=== PATIENT | male | born 1945 | race Caucasian/White ===

== ENCOUNTER 2021-03-07 12:13 | Emergency (ER) | payer MEDICARE, BC ==
--- NOTE | 2021-03-07 13:28 | CR ---
Bilateral knees: Standing AP view of both knees was obtained as well as lateral and sunrise patellar views. Severe medial joint space narrowing is noted bilaterally. Lateral joint spaces are preserved. Small bony density is noted on the right superior patella which appears old. Bony density is noted within the lateral joint of the right knee most likely representing loose body. Mild bilateral joint space narrowing is seen within the patellofemoral joints with osteophytes. Large calcification is seen superior to the left patella within a joint effusion measuring 2.6 cm. Joint effusion is also noted on the right side. Vascular calcification is noted within both knees. Impression: 1. Severe degenerative change as noted above. 2. Bilateral joint effusions are seen. 3. 2.6 cm calcification is noted within the left joint effusion. Other findings as noted above. 4. Nothing acute is seen. Diagnostic code #2
[2021-03-07] MEDS ORDERED: HYDROmorphone 1 MG/ML Syringe IM ONE (13:41)
--- NOTE | 2021-03-07 14:36 | EDM.PDOC ---
ED HPI GENERAL MEDICAL PROBLEM - General Chief Complaint: Lower Extremity Injury/Pain Stated Complaint: [facility] Time Seen by Provider: 03/07/21 13:02 Source of Information: Reports: Patient, RN Notes Reviewed History Limitations: Reports: No Limitations ( ) - History of Present Illness INITIAL COMMENTS - FREE TEXT/NARRATIVE: Patient is a 75-year-old male presenting to the emergency department with complaints of bilateral knee pain. Patient reports this has been going on for quite some time, however has worsened since of last week. 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 He has been evaluated by an orthopedist in [place] with the plan of having knee replacement, however it has been repeatedly canceled due to Covid. He is scheduled to see orthopedist, Dr. Horta on Sunday and this would be his first visit. He denies any recent injuries. He has been unable to walk on his knees since . Reports that he sits on his walker and scoots. He has been taking hydrocodone with Tylenol for pain but states this is not really helping. Bilateral Knee Pain Score (Numeric/FACES): 8 - Related Data Allergies Allergy/AdvReac Type Severity Reaction Status Date / Time No Known Allergies Allergy Verified 03/07/21 12:25 Home Meds: Home Meds Acetaminophen/oxyCODONE [Percocet 325-5 MG] 1 each PO Q4H PRN #15 tab 03/07/21 [Rx] predniSONE [Prednisone] 20 mg PO ASDIRECTED #15 tablet 03/07/21 [Rx] Past Medical History Cardiovascular History: Reports: Afib, CAD, Heart Failure, High Cholesterol Gastrointestinal History: Reports: GERD, GI Bleed, Other (See Below) Other Gastrointestinal History: "Bleeding Ulcers" Musculoskeletal History: Reports: Other (See Below) Other Musculoskeletal History: Chronic Knee Pain Endocrine/Metabolic History: Reports: Diabetes, Type II, Hypokalemia, Obesity/BMI 30+ Hematologic History: Reports: Anticoagulation Therapy - Infectious Disease History Infectious Disease History: Reports: Novel Coronavirus - Past Surgical History HEENT Surgical History: Reports: Cataract Surgery Cardiovascular Surgical History: Reports: Carotid Stents, Valve Replacement Neurological Surgical History: Reports: Other (See Below) Other Neurological Surgeries/Procedures: Back Surgeries Social & Family History - Tobacco Use Tobacco Use Status *Q: Never Tobacco User - Caffeine Use Caffeine Use: Reports: Coffee - Recreational Drug Use Recreational Drug Use: No Review of Systems - Review of Systems Review Of Systems: Comprehensive ROS is negative, except as noted in HPI. ED EXAM, GENERAL - Physical Exam Exam: See Below Exam Limited By: No Limitations General Appearance: Alert, WD/WN, No Apparent Distress Respiratory/Chest: No Respiratory Distress, Lungs Clear, Normal Breath Sounds, No Accessory Muscle Use, Chest Non-Tender Cardiovascular: Normal Peripheral Pulses, Regular Rate, Rhythm, No Edema, No Gallop, No JVD, No Murmur, No Rub Extremities: Other (Swelling to bilateral knees.) Neurological: Alert, Oriented, CN II-XII Intact, Normal Cognition, Normal Reflexes, No Motor/Sensory Deficits Psychiatric: Normal Affect, Normal Mood Skin Exam: Warm, Dry, Intact, Normal Color, No Rash Course - Vital Signs Last Recorded V/S: Last Vital Signs Temp 96.7 F L 03/07/21 12:22 Pulse 80 03/07/21 12:22 Resp 16 03/07/21 12:22 BP 105/76 03/07/21 12:22 Pulse Ox 100 03/07/21 12:22 - Orders/Labs/Meds Meds: Medications Discontinued Medications Generic Name Dose Route Start Last Admin Trade Name Sundarq PRN Reason Stop Dose Admin Hydromorphone HCl 1 mg 03/07/21 13:41 03/07/21 13:54 Hydromorphone 1 Mg/Ml Syringe IM 03/07/21 13:42 1 mg ONETIME ONE Administration Prednisone 40 mg 03/07/21 16:01 03/07/21 16:07 Prednisone 20 Mg Tab PO 03/07/21 16:02 40 mg ONETIME ONE Administration - Re-Assessments/Exams Free Text/Narrative Re-Assessment/Exam: Patient is a 75-year-old male presenting to the emergency part with complaints of bilateral knee pain the right being worse than the left. He has chronic degenerative joint disease and has been scheduled to have knee replacements, however they have been canceled due to Covid. He is scheduled to see Dr. Horta on Sunday and this would be his first visit with him. He has been taking hydrocodone with Tylenol with little relief. Last dose was this morning. Of ordered Dilaudid 1 mg IM and bilateral knee x-rays. 03/07/21 1520 xrays of the bilateral knees show severe degenerative changes as well as bilateral joint effusions. There is a 2.6 cm calcification within the left joint effusion. Nothing acute is seen. His pain is improved significantly after the Dilaudid. He was able to get up and walk across the room with the assistance of a walker. I will discharge him home with prescription for Percocet for pain as well as prednisone. Recommend that he follow-up with Dr. Horta as scheduled on Sunday. Discussed return precautions. Discharge instructions as documented. Departure - Departure Time of Disposition: 15:25 Disposition: Home, Self-Care 01 Condition: Good Clinical Impression: Knee pain, chronic Qualifiers: Laterality: bilateral Qualified Code(s): M25.561 - Pain in right knee; M25.562 - Pain in left knee; G89.29 - Other chronic pain - Discharge Information *PRESCRIPTION DRUG MONITORING PROGRAM REVIEWED*: Yes *COPY OF PRESCRIPTION DRUG MONITORING REPORT IN PATIENT MONSTER: No Prescriptions: Acetaminophen/oxyCODONE [Percocet 325-5 MG] 1 each PO Q4H PRN #15 tab PRN Reason: Pain predniSONE [Prednisone] 20 mg PO ASDIRECTED #15 tablet Instructions: Chronic Knee Pain, Adult, [id number] Referrals: Radha Staley PA-C [Primary Care Provider] - Forms: ED Department Discharge Additional Instructions: Recommend routine Tylenol. For pain not relieved by this, a prescription for oxycodine/tylenol has been provided. Take this only as prescribed. Do not work or drive for 12 hours after taking this as it can be sedating. Ensure you are not taking in more than 4000 mg of Tylenol from all sources in a 24-hour period. Do not take your hydrocodone with Tylenol while taking the oxycodone/Tylenol. Take the prednisone as prescribed. Keep your appointment Dr. Horta on Sunday as scheduled. Return to ER for any new or worsening symptoms. Sepsis Event Note (ED) - Evaluation Sepsis Screening Result: No Definite Risk
[2021-03-07] MEDS ORDERED: predniSONE 20 MG Tab PO ONE (16:01)
== END 2021-03-07 16:05 | disposition home or self-care (01) ==
LOC: JD.ED 12:13
DX: G89.29 Other chronic pain (principal); M25.561 Pain in right knee; M25.562 Pain in left knee; I48.91 Unspecified atrial fibrillation; I25.10 Atherosclerotic heart disease of native coronary artery without angina pectoris; I50.9 Heart failure, unspecified; E78.00 Pure hypercholesterolemia, unspecified; E11.9 Type 2 diabetes mellitus without complications; E66.9 Obesity, unspecified; Z68.30 Body mass index [BMI] 30.0-30.9, adult
CPT/HCPCS: 73562; 96372; 99283; J1170; J7512

== ENCOUNTER 2021-04-13 18:00 | Emergency (ER) | payer MEDICARE, BC ==
[2021-04-13] MEDS ORDERED: Sodium Chloride 0.9% 10 ML Syringe FLUSH PRN (18:26)
--- NOTE | 2021-04-13 19:00 | EDM.PDOC ---
ED HPI GENERAL MEDICAL PROBLEM - General Chief Complaint: Cardiovascular Problem Stated Complaint: BLOOD PRESSURE LOW Time Seen by Provider: 04/13/21 18:23 Source of Information: Reports: Patient, RN Notes Reviewed History Limitations: Reports: No Limitations - History of Present Illness INITIAL COMMENTS - FREE TEXT/NARRATIVE: Patient is a 75-year-old male presenting to the emergency department from the [facility] with concerns of low blood pressure and dizziness. Symptoms began this morning upon waking. Patient states that he felt generalized weakness and dizziness which was worse upon standing. He went to physical therapy and they was found to have a low blood pressure. He was then seen by his primary care provider, SWATHI Breaux and was found to have initial blood pressure of 87/57 lying and 66/42 standing. He received 500 mils of saline and did have some improvement to 106/69 but still 74/43 standing. Patient states he felt better after the fluids. Patient has a history of left knee replacement 1 month ago. He is also had GI bleed for which she was hospitalized in [place]. He was off of his blood thinners for the knee surgery as well as GI bleed, however he did resume blood thinners 2 weeks ago. He denies any watery or black stools and has had no vomiting. Denies any chest pain or shortness of breath. Symptoms have resolved at this time. Of note, he did take an oxycodone this morning which she has not done for approximately 1 week. He has a history of MD with stenting. states his only symptom at that time was breaking out in a cold sweat. - Related Data Allergies Allergy/AdvReac Type Severity Reaction Status Date / Time No Known Allergies Allergy Verified 04/13/21 18:28 Home Meds: Home Meds ALPRAZolam [Xanax] 0.5 mg PO Q8H PRN 04/13/21 [History] Acetaminophen [Tylenol 8 Hour] 1,300 mg PO Q8H PRN 04/13/21 [History] Apixaban [Eliquis] 5 mg PO BID 04/13/21 [History] Dulaglutide [Trulicity] 0.75 mg SQ ASDIRECTED 04/13/21 [History] Ferrous Fumarate/Vitamin C [Vitron-C] 65 - 125 mg PO BID 04/13/21 [History] Furosemide 20 mg PO BID 04/13/21 [History] Nitroglycerin [Nitrostat] 0.4 mg SL ASDIRECTED PRN 04/13/21 [History] Pantoprazole [ProTONIX] 40 mg PO DAILY 04/13/21 [History] Potassium Chloride [Klor-Con 10] 10 meq PO BID 04/13/21 [History] Rosuvastatin [Crestor] 10 mg PO DAILY 04/13/21 [History] Sacubitril/Valsartan [Entresto 24 mg-26 mg Tablet] 24 - 26 mg PO DAILY 04/13/21 [History] Sertraline [Zoloft] 50 mg PO DAILY 04/13/21 [History] carvediloL [Carvedilol] 6.25 mg PO DAILY 04/13/21 [History] carvediloL [Carvedilol] 12.5 mg PO BEDTIME 04/13/21 [History] glipiZIDE [Glucotrol XL] 2.5 mg PO DAILY 04/13/21 [History] Past Medical History Cardiovascular History: Reports: Afib, CAD, Heart Failure, High Cholesterol Gastrointestinal History: Reports: GERD, GI Bleed, Other (See Below) Other Gastrointestinal History: "Bleeding Ulcers" Musculoskeletal History: Reports: Other (See Below) Other Musculoskeletal History: Chronic Knee Pain Endocrine/Metabolic History: Reports: Diabetes, Type II, Hypokalemia, Obesity/BMI 30+ Hematologic History: Reports: Anticoagulation Therapy - Infectious Disease History Infectious Disease History: Reports: Novel Coronavirus - Past Surgical History HEENT Surgical History: Reports: Cataract Surgery Cardiovascular Surgical History: Reports: Carotid Stents, Valve Replacement Neurological Surgical History: Reports: Other (See Below) Other Neurological Surgeries/Procedures: Back Surgeries Social & Family History - Caffeine Use Caffeine Use: Reports: Coffee ED ROS GENERAL - Review of Systems Review Of Systems: See Below Constitutional: Reports: No Symptoms. Denies: Fever, Chills HEENT: Reports: No Symptoms Respiratory: Reports: No Symptoms. Denies: Shortness of Breath, Cough Cardiovascular: Reports: Blood Pressure Problem, Lightheadedness. Denies: Chest Pain, Dyspnea on Exertion, Palpitations, Syncope Endocrine: Reports: No Symptoms GI/Abdominal: Reports: No Symptoms : Reports: No Symptoms Musculoskeletal: Reports: No Symptoms Skin: Reports: No Symptoms Neurological: Reports: Dizziness Psychiatric: Reports: No Symptoms Hematologic/Lymphatic: Reports: No Symptoms Immunologic: Reports: No Symptoms ED EXAM, GENERAL - Physical Exam Exam: See Below Exam Limited By: No Limitations General Appearance: Alert, WD/WN, No Apparent Distress Eye Exam: Bilateral Eye: PERRL Respiratory/Chest: No Respiratory Distress, Lungs Clear, Normal Breath Sounds, No Accessory Muscle Use, Chest Non-Tender Cardiovascular: Normal Peripheral Pulses, Regular Rate, Rhythm, No Edema, No Gallop, No JVD, No Murmur, No Rub GI/Abdominal: Normal Bowel Sounds, Soft, Non-Tender, No Organomegaly, No Distention, No Abnormal Bruit, No Mass Extremities: Other (Well approximated, mostly healed incision to left knee. No redness, warmth, or drainage. Small amount of edema. 2+ pitting edema to left ankle and foot.) Neurological: Alert, Oriented, CN II-XII Intact, Normal Cognition, Normal Gait, Normal Reflexes, No Motor/Sensory Deficits Psychiatric: Normal Affect, Normal Mood Skin Exam: Warm, Dry, Intact, Normal Color, No Rash #1 Interpretation EKG Date: 04/13/21 Time: 18:49 Rhythm: NSR Rate (Beats/Min): 86 P-Wave: Present QRS: Normal ST-T: Normal QT: Normal EKG Interpretation Comments: frequent PVCs Course - Vital Signs Last Recorded V/S: Last Vital Signs Temp 97.7 F 04/13/21 18:25 Pulse 103 H 04/13/21 18:25 Resp 20 04/13/21 18:25 BP 112/63 04/13/21 18:25 Pulse Ox 100 04/13/21 18:25 Orthostatic Blood Pressure [ 89/58 Standing] Orthostatic Blood Pressure [ 94/65 Sitting] Orthostatic Blood Pressure [ 103/68 Supine] - Orders/Labs/Meds Orders: Active Orders 24 hr Category Date Time Status Orthostatic Vital Signs [RC] ASDIRECTED Care 04/13/21 18:27 Active Peripheral IV Care [RC] . DIRECTED Care 04/13/21 18:26 Active PE Chest [Ang Chest] [CT] Stat Exams 04/13/21 19:18 Taken Sodium Chloride 0.9% [Normal Saline] 1,000 ml Med 04/13/21 19:49 Active IV NOW Sodium Chloride 0.9% [Saline Flush] Med 04/13/21 18:26 Active 10 ml FLUSH ASDIRECTED PRN Peripheral IV Insertion Adult [OM.PC] Stat Oth 04/13/21 18:25 Ordered Medication Orders Sodium Chloride (Normal Saline) 1,000 mls @ 150 mls/hr IV NOW STA Stop: 04/14/21 02:28 Last Admin: 04/13/21 20:08 Dose: 150 mls/hr Documented by: JANETTER Sodium Chloride (Sodium Chloride 0.9% 10 Ml Syringe) 10 ml FLUSH ASDIRECTED PRN PRN Reason: Keep Vein Open Last Admin: 04/13/21 19:42 Dose: 10 ml Documented by: MIKE Labs: Laboratory Tests 04/13/21 04/13/21 04/13/21 Range/Units 18:20 18:20 18:20 WBC 12.12 H (4.23-9.07) K/mm3 RBC 4.28 L (4.63-6.08) M/mm3 Hgb 11.1 L (13.7-17.5) gm/dl Hct 36.7 L (40.1-51.0) % MCV 85.7 (79.0-92.2) fl MCH 25.9 (25.7-32.2) pg MCHC 30.2 L (32.2-35.5) g/dl RDW Std Deviation 56.1 H (35.1-43.9) fL Plt Count 459 H (163-337) K/mm3 MPV 9.1 L (9.4-12.3) fl Neut % (Auto) 65.8 (34.0-67.9) % Lymph % (Auto) 24.7 (21.8-53.1) % Upton % (Auto) 7.9 (5.3-12.2) % Eos % (Auto) 0.7 L (0.8-7.0) Baso % (Auto) 0.2 (0.1-1.2) % Neut # (Auto) 7.98 H (1.78-5.38) K/mm3 Lymph # (Auto) 2.99 (1.32-3.57) K/mm3 Upton # (Auto) 0.96 H (0.30-0.82) K/mm3 Eos # (Auto) 0.09 (0.04-0.54) K/mm3 Baso # (Auto) 0.02 (0.01-0.08) K/mm3 D-Dimer, Quantitative (0.19-0.50) mg/L Sodium 139 (136-145) mEq/L Potassium 4.1 (3.5-5.1) mEq/L Chloride 102 (98-107) mEq/L Carbon Dioxide 27 (21-32) mEq/L Anion Gap 14.1 (5-15) BUN 19 H (7-18) mg/dL Creatinine 1.3 (0.7-1.3) mg/dL Est Cr Clr Drug Dosing 53.78 mL/min Estimated GFR (MDRD) 54 (>60) mL/min BUN/Creatinine Ratio 14.6 (14-18) Glucose 153 H (70-99) mg/dL Calcium 8.8 (8.5-10.1) mg/dL Magnesium 2.1 (1.8-2.4) mg/dL Total Bilirubin 0.5 (0.2-1.0) mg/dL AST 31 (15-37) U/L ALT 18 (16-63) U/L Alkaline Phosphatase 293 H (46-116) U/L Troponin I < 0.017 (0.00-0.056) ng/mL C-Reactive Protein 3.8 H* (<1.0) mg/dL NT-Pro-B Natriuret Pep 2120 H (0-450) pg/mL Total Protein 7.3 (6.4-8.2) g/dl Albumin 2.3 L (3.4-5.0) g/dl Globulin 5.0 gm/dL Albumin/Globulin Ratio 0.5 L (1-2) 04/13/21 Range/Units 18:20 WBC (4.23-9.07) K/mm3 RBC (4.63-6.08) M/mm3 Hgb (13.7-17.5) gm/dl Hct (40.1-51.0) % MCV (79.0-92.2) fl MCH (25.7-32.2) pg MCHC (32.2-35.5) g/dl RDW Std Deviation (35.1-43.9) fL Plt Count (163-337) K/mm3 MPV (9.4-12.3) fl Neut % (Auto) (34.0-67.9) % Lymph % (Auto) (21.8-53.1) % Upton % (Auto) (5.3-12.2) % Eos % (Auto) (0.8-7.0) Baso % (Auto) (0.1-1.2) % Neut # (Auto) (1.78-5.38) K/mm3 Lymph # (Auto) (1.32-3.57) K/mm3 Upton # (Auto) (0.30-0.82) K/mm3 Eos # (Auto) (0.04-0.54) K/mm3 Baso # (Auto) (0.01-0.08) K/mm3 D-Dimer, Quantitative 1.91 H (0.19-0.50) mg/L Sodium (136-145) mEq/L Potassium (3.5-5.1) mEq/L Chloride (98-107) mEq/L Carbon Dioxide (21-32) mEq/L Anion Gap (5-15) BUN (7-18) mg/dL Creatinine (0.7-1.3) mg/dL Est Cr Clr Drug Dosing mL/min Estimated GFR (MDRD) (>60) mL/min BUN/Creatinine Ratio (14-18) Glucose (70-99) mg/dL Calcium (8.5-10.1) mg/dL Magnesium (1.8-2.4) mg/dL Total Bilirubin (0.2-1.0) mg/dL AST (15-37) U/L ALT (16-63) U/L Alkaline Phosphatase (46-116) U/L Troponin I (0.00-0.056) ng/mL C-Reactive Protein (<1.0) mg/dL NT-Pro-B Natriuret Pep (0-450) pg/mL Total Protein (6.4-8.2) g/dl Albumin (3.4-5.0) g/dl Globulin gm/dL Albumin/Globulin Ratio (1-2) Meds: Medications Generic Name Dose Route Start Last Admin Trade Name Freq PRN Reason Stop Dose Admin Sodium Chloride 1,000 mls @ 150 mls/hr 04/13/21 19:49 04/13/21 20:08 Normal Saline IV 12/02/21 02:28 150 mls/hr NOW STA Administration Sodium Chloride 10 ml 04/13/21 18:26 04/13/21 19:42 Sodium Chloride 0.9% 10 Ml Syringe FLUSH 10 ml ASDIRECTED PRN Administration Keep Vein Open - Re-Assessments/Exams Free Text/Narrative Re-Assessment/Exam: Patient is a 75-year-old male presenting to the emergency department for evaluation of low pressures and dizziness earlier today. He was hypotensive in the clinic and received 500 mils of saline. Unfortunately do not have the a bility to do blood work. He has a history of GI bleed and has recently been put back on his Eliquis, however he has had no bloody or black stools or vomiting of any sort. States he feels well at this time. Dizziness resolved after the IV fluids. On arrival to ER, he is normotensive at 112/63 which patient states is a normal blood pressure for him. He denies any chest pain or shortness of breath. I have ordered blood work, chest x-ray, EKG, orthostatic blood pressures. 04/13/21 1830 Hematology significant for WBC minimally elevated at 12.12, hemoglobin slightly low 11.1, D-dimer elevated 1.91, CRP 3.8, proBNP 2120. Troponin is undetectably low. Patient is not orthostatic. Elevation in D-dimer is likely related to his recent knee surgery, however given his history of A. fib and that he was off his Eliquis for his surgeries, we will complete a CT angiogram of the chest to ensure he does not have a PE. He has been back on his Eliquis for approximately 2 weeks. Patient reports he has had IV contrast in the past and tolerated it well. 04/13/21 21:06 CT angiogram of the chest shows no acute definitive changes. There is no evidence of pulmonary embolism. Patient has maintained normal blood pressures and is feeling well. Patient discussed that primary care provider recommended that he decrease his Lasix from 20 mg twice a day to to 20 mg once a day. I would agree with this change. Recommend follow-up with his primary care provider at her next available visit. Discussed return precautions. Discharge instructions as documented. Departure - Departure Time of Disposition: 21:07 Disposition: Home, Self-Care 01 Condition: Good Clinical Impression: Hypotension Qualifiers: Hypotension type: unspecified hypotension type Qualified Code(s): I95.9 - Hypotension, unspecified Instructions: Hypotension, [id number] Referrals: Radha Staley PA-C [Primary Care Provider] - Forms: ED Department Discharge Additional Instructions: Reduce Lasix to 20 mg once daily. Ensure you are taking in enough fluids throughout the day. Follow-up with primary care provider at next available visit. Return to ER for any new or worsening symptoms. Sepsis Event Note (ED) - Focused Exam Vital Signs: Vital Signs Temp Pulse Resp BP Pulse Ox 04/13/21 18:25 97.7 F 103 H 20 112/63 100 - My Orders Last 24 Hours: My Active Orders 04/13/21 18:25 Peripheral IV Insertion Adult [OM.PC] Stat 04/13/21 18:26 Peripheral IV Care [RC] . DIRECTED Sodium Chloride 0.9% [Saline Flush] 10 ml FLUSH ASDIRECTED PRN 04/13/21 18:27 Orthostatic Vital Signs [RC] ASDIRECTED 04/13/21 19:18 PE Chest [Ang Chest] [CT] Stat 04/13/21 19:49 Sodium Chloride 0.9% [Normal Saline] 1,000 ml IV NOW - Assessment/Plan Last 24 Hours: My Active Orders 04/13/21 18:25 Peripheral IV Insertion Adult [OM.PC] Stat 04/13/21 18:26 Peripheral IV Care [RC] . DIRECTED Sodium Chloride 0.9% [Saline Flush] 10 ml FLUSH ASDIRECTED PRN 04/13/21 18:27 Orthostatic Vital Signs [RC] ASDIRECTED 04/13/21 19:18 PE Chest [Ang Chest] [CT] Stat 04/13/21 19:49 Sodium Chloride 0.9% [Normal Saline] 1,000 ml IV NOW
--- NOTE | 2021-04-13 19:30 | CR ---
Chest: PA and lateral views of the chest were obtained. Comparison: Prior chest x-ray of 08/29/19. Heart size is slightly prominent. Sternotomy is noted with prior CABG. Lungs are clear with no acute parenchymal change. Scattered degenerative spurring is noted within the spine with scattered disc space narrowing. Prior cervical spine surgery is also noted. Impression: 1. Findings as described above. 2. Nothing acute is seen on 2 view chest x-ray. Diagnostic code #2
[2021-04-13] MEDS ORDERED: Sodium Chloride 0.9% 1,000 ML IV STA (19:49)
--- NOTE | 2021-04-14 06:50 | CT ---
CT chest Technique: Multiple axial sections through the chest were obtained. Intravenous contrast was utilized. Study has been performed as a pulmonary angiogram protocol. Comparison: No prior chest CT is available, prior chest x-ray performed earlier on the same day (7:04 PM) Findings: Pulmonary arteries are well opacified. No filling defects are seen to indicate pulmonary embolism. Thoracic aorta shows scattered atherosclerotic change with no aneurysm. Mediastinum shows no adenopathy. Sternotomy is noted. Heart is enlarged. Visualized upper abdominal structures show nothing acute. Lungs show no acute parenchymal change. Bone window settings were reviewed which show scattered degenerative change throughout the spine as well as prior cervical spine surgery. No acute bony abnormality is appreciated. Impression: 1. Findings felt to be chronic as described above. 2. No findings of pulmonary embolism are seen. Nothing acute is definitely appreciated on CT study of the chest. Diagnostic code #2 I agree with preliminary report from [facility], finalized on 04/13/21, 10:02 PM PATIENT TRANSPORTER, code 1
== END 2021-04-13 21:25 | disposition home or self-care (01) ==
LOC: JD.ED 18:00
DX: I95.9 Hypotension, unspecified (principal); I10 Essential (primary) hypertension; I48.91 Unspecified atrial fibrillation; I25.10 Atherosclerotic heart disease of native coronary artery without angina pectoris; E78.00 Pure hypercholesterolemia, unspecified; K21.9 Gastro-esophageal reflux disease without esophagitis; E11.9 Type 2 diabetes mellitus without complications; E66.9 Obesity, unspecified; Z68.29 Body mass index [BMI] 29.0-29.9, adult; Z79.899 Other long term (current) drug therapy; Z79.01 Long term (current) use of anticoagulants
CPT/HCPCS: 36415; 71046; 71275; 80053; 83735; 83880; 84484; 85025; 85379; 86140; 93005; 99285; J7030; 93010; 99284

== ENCOUNTER 2022-08-31 21:34 | Inpatient (IN) | payer MEDICARE, BC ==
[2022-08-31] MEDS ORDERED: Pantoprazole 40 MG Vial IVPUSH ONE (22:20)
[2022-08-31] MEDS ORDERED: Famotidine 20 MG/2 ML SDV IVPUSH ONE (22:20)
[2022-08-31] MEDS ORDERED: Sodium Chloride 0.9% 1,000 ML IV SCH (22:45)
[2022-09-01] MEDS ORDERED: ALPRAZolam 0.5 MG Tab PO PRN ×2 (03:08→03:36)
[2022-09-01] MEDS ORDERED: Sodium Chloride 0.9% 500 ML IV SCH (03:15)
[2022-09-01] MEDS ORDERED: Furosemide 20 MG Tab PO SCH (06:00)
[2022-09-01] MEDS ORDERED: Acetaminophen 325 MG Tab PO PRN (07:52)
[2022-09-01] MEDS ORDERED: Ondansetron 4 MG/2 ML SDV IV PRN (07:52)
[2022-09-01] MEDS ORDERED: Insulin Lispro 100 Unit/ML 3 ML KwikPen SUBCUT SCH ×2 (08:00→12:00)
[2022-09-01] MEDS ORDERED: Sacubitril/Valsartan 1 EACH Tablet PO SCH ×2 (09:00)
[2022-09-01] MEDS ORDERED: Furosemide 40 MG Tab PO SCH (09:00)
[2022-09-01] MEDS ORDERED: Potassium Chloride 10 MEQ Tab.ER PO SCH ×2 (09:00)
[2022-09-01] MEDS ORDERED: Carvedilol 12.5 MG Tab PO SCH (09:00)
[2022-09-01] MEDS ORDERED: Pantoprazole 40 MG Vial IVPUSH SCH (09:00)
[2022-09-01] MEDS ORDERED: Sodium Chloride 0.9% 250 ML ONE (10:26)
[2022-09-01] MEDS: Insulin Lispro 100 Unit/ML 3 ML KwikPen SUBCUT SCH ×3 (10:50→21:57)
[2022-09-01] MEDS: Rosuvastatin 10 MG Tab PO SCH (11:01)
[2022-09-01] MEDS: Pantoprazole 40 MG Vial IVPUSH SCH ×2 (11:01→20:35)
[2022-09-01] MEDS: Carvedilol 6.25 MG Tab PO SCH ×3 (13:01→21:56)
[2022-09-01] MEDS: Lactated Ringers 1,000 ML IV SCH (14:31)
[2022-09-01] MEDS ORDERED: Polyethylene Glycol/Electrolytes 4,000 ML Bottle PO ONE ×2 (15:00→17:00)
[2022-09-01] MEDS: Carvedilol 12.5 MG Tab PO SCH ×2 (20:34→21:56)
[2022-09-01] MEDS ORDERED: Famotidine 20 MG/2 ML SDV IVPUSH SCH (21:00)
[2022-09-02] MEDS: Lactated Ringers 1,000 ML IV SCH (07:18)
[2022-09-02] MEDS: Insulin Lispro 100 Unit/ML 3 ML KwikPen SUBCUT SCH (07:20)
[2022-09-02] MEDS ORDERED: Dextrose 5%-0.45% NaCl 1,000 ML IV SCH (07:30)
[2022-09-02] MEDS: Carvedilol 6.25 MG Tab PO SCH (08:16)
[2022-09-02] MEDS: Pantoprazole 40 MG Vial IVPUSH SCH (08:20)
[2022-09-02] MEDS: Rosuvastatin 10 MG Tab PO SCH (08:21)
[2022-09-02] MEDS ORDERED: Propofol 200 MG/20 ML SDV ONE (09:25)
[2022-09-02] MEDS ORDERED: Lidocaine 1% 8 ML ONE (09:26)
[2022-09-02] MEDS ORDERED: fentaNYL 100 MCG/2 ML SDV ONE (09:26)
[2022-09-02] MEDS ORDERED: Ketamine 500 mg/10 ML MDV ONE (09:26)
[2022-09-02] MEDS ORDERED: EPINEPHrine 1 MG/ML SDV ONE (09:44)
== END 2022-09-02 13:03 | disposition home or self-care (01) | DRG 375 ==
LOC: JD.ED 21:34 → JD.MS 09-01 00:29
PROVIDERS: ADMIT Internal Medicine; ATTEND Internal Medicine
PROC: 0DBH8ZX Excision of Cecum, Via Natural or Artificial Opening Endoscopic, Diagnostic (ICD-10-PCS; principal; 2022-09-02)
PROC: 0DJ08ZZ Inspection of Upper Intestinal Tract, Via Natural or Artificial Opening Endoscopic (ICD-10-PCS; 2022-09-02)
PROC: 0DBK8ZX Excision of Ascending Colon, Via Natural or Artificial Opening Endoscopic, Diagnostic (ICD-10-PCS; 2022-09-02)
DX: C18.0 Malignant neoplasm of cecum (principal); J90 Pleural effusion, not elsewhere classified; K92.2 Gastrointestinal hemorrhage, unspecified; J98.11 Atelectasis; N17.9 Acute kidney failure, unspecified; I48.91 Unspecified atrial fibrillation; I25.10 Atherosclerotic heart disease of native coronary artery without angina pectoris; I44.0 Atrioventricular block, first degree; I45.10 Unspecified right bundle-branch block; E78.5 Hyperlipidemia, unspecified; I50.9 Heart failure, unspecified; K21.9 Gastro-esophageal reflux disease without esophagitis; F41.9 Anxiety disorder, unspecified; K63.5 Polyp of colon; E87.6 Hypokalemia; K64.8 Other hemorrhoids; K57.30 Diverticulosis of large intestine without perforation or abscess without bleeding; K64.4 Residual hemorrhoidal skin tags; D64.9 Anemia, unspecified; E11.9 Type 2 diabetes mellitus without complications; G89.29 Other chronic pain; Z96.659 Presence of unspecified artificial knee joint; E66.9 Obesity, unspecified; Z79.899 Other long term (current) drug therapy; Z98.49 Cataract extraction status, unspecified eye; Z95.1 Presence of aortocoronary bypass graft; Z95.5 Presence of coronary angioplasty implant and graft; Z87.11 Personal history of peptic ulcer disease; Z79.01 Long term (current) use of anticoagulants; Z98.890 Other specified postprocedural states; Z68.31 Body mass index [BMI] 31.0-31.9, adult
CPT/HCPCS: 00813; 36415; 36430; 71045; 71045-26; 74176; 74176-26; 80053; 81001; 82947; 83690; 83735; 84484; 85014; 85018; 85025; 86850; 86900; 86901; 86922; 93005; 93010; 96361; 96374; 96375; 97162-GP; 99100; 99223; 99239; 99284; 99285-25; A9270-GY; C9113; J0171; J2405; J2704; J3010; J3490; J7030; J7120; P9016